=== PATIENT | male | born 1955 | race Caucasian/White ===

== ENCOUNTER 2021-03-03 14:43 | Observation (INO) | payer SELFPAY ==
[2021-03-03] MEDS ORDERED: Ondansetron ODT 4 MG TAB SL PRN (15:00)
[2021-03-03] MEDS ORDERED: Ondansetron PF 4 MG/2 ML Vial IVP PRN (15:00)
[2021-03-03] MEDS ORDERED: Acetaminophen 325 MG TAB PO PRN (15:00)
[2021-03-03 15:35] LABS: ALT (SGPT) 140 U/L (8-55); AST (SGOT) 142 U/L (5-34); Albumin 3.4 g/dL (3.4-4.8); Alkaline Phosphatase 86 U/L (40-110); Anion Gap 12 mmol/L (10-20); BUN (Urea Nitrogen) 15 mg/dL (8.4-25.7); Bilirubin, Total 1.6 mg/dL (0.2-1.2); Calc. Creatinine Clearance 0 mL/min (70-130); Calcium 8.9 mg/dL (7.8-10.44); Carbon Dioxide 17 mmol/L (23-31); Chloride 110 mmol/L (98-107); Globulin 4.2 g/dL (2.4-3.5); Glucose 111 mg/dL (80-115); Potassium 3.9 mmol/L (3.5-5.1); Protein, Total 7.6 g/dL (5.8-8.1); Sodium 135 mmol/L (136-145)
[2021-03-03 15:37] LABS: #Basophils 0.1 thou/uL (0.0-0.2); #Eosinphils 0.2 thou/uL (0.0-0.7); #Lymphocytes 2.4 thou/uL (1.20-3.40); #Monocytes 0.5 thou/uL (0.11-0.59); #Neutrophils 2.6 thou/uL (1.40-6.50); %Basophils 1.6 % (0.0-1.0); %Eosinophils 2.7 % (0.0-10.0); %Lymphocytes 41.5 % (21.0-51.0); %Neutrophils 46.2 % (42.0-75.0); Mean Corpuscular HGB CONC 34.2 g/dL (32.0-36.0); Mean Corpuscular Hemoglobin 35.5 pg (27.0-31.0); Platelet Count 78 thou/uL (130-400); Platelet Morphology Comment Appears Decreased; RBC Distribution Width 12.6 % (11.5-14.5); Red Blood Cell (RBC) Count 4.23 mill/uL (4.70-6.10); White Blood Cell (WBC) Count 5.7 thou/uL (4.8-10.8)
[2021-03-03] MEDS ORDERED: Nitroglycerin 2% Ointment 1 INCH/1 GM Packet ONE (17:52)
[2021-03-03] MEDS ORDERED: Ondansetron PF 4 MG/2 ML Vial ONE (17:52)
[2021-03-03] MEDS ORDERED: Morphine 4 MG/ML VIAL ONE (17:52)
[2021-03-03 18:29] LABS: Troponin I Less than 0.010 ng/mL (< 0.028)
[2021-03-03 19:33] VITALS: BMI 32.8
[2021-03-03 21:42] LABS: Troponin I 0.012 ng/mL (< 0.028)
[2021-03-03] MEDS ORDERED: Morphine 4 MG/ML VIAL SLOW IVP PRN (22:24)
[2021-03-03] MEDS ORDERED: HYDROcodone/Acetaminophen 5/325 mg Tablet PO PRN (22:25)
[2021-03-04 00:36] LABS: SARS-CoV-2 PCR by NAA Not Detected (NotDetected)
[2021-03-04 05:02] LABS: #Basophils 0.1 thou/uL (0.0-0.2); #Eosinphils 0.2 thou/uL (0.0-0.7); #Monocytes 0.5 thou/uL (0.11-0.59); #Neutrophils 2.6 thou/uL (1.40-6.50); %Basophils 1.1 % (0.0-1.0); %Lymphocytes 37.6 % (21.0-51.0); %Monocytes 8.6 % (0.0-10.0); %Neutrophils 49.7 % (42.0-75.0); Mean Corpuscular HGB CONC 33.9 g/dL (32.0-36.0); Mean Platelet Volume 8.9 fL (7.4-10.4); Platelet Count 69 thou/uL (130-400); RBC Distribution Width 12.4 % (11.5-14.5); Red Blood Cell (RBC) Count 4.01 mill/uL (4.70-6.10); White Blood Cell (WBC) Count 5.2 thou/uL (4.8-10.8)
[2021-03-04 05:25] LABS: Anion Gap 12 mmol/L (10-20); BUN (Urea Nitrogen) 16 mg/dL (8.4-25.7); Calc. Creatinine Clearance 123 mL/min (70-130); Calcium 8.5 mg/dL (7.8-10.44); Carbon Dioxide 19 mmol/L (23-31); Chloride 109 mmol/L (98-107); Glucose 87 mg/dL (80-115); Sodium 136 mmol/L (136-145)
[2021-03-04 05:35] LABS: HBCM Index 0.07 S/CO (0-0.79); HBSAg Index 0.22 S/CO (0-0.99); Hep A IgM AB Non-Reactive (NonReactive); Hep A IgM S/CO 0.08 S/CO (0-0.79); Hep B Surf Ag Non-Reactive S/CO (NonReactive); Hepatitis B Core IgM Abs Non-Reactive (NonReactive)
[2021-03-04 06:31] LABS: Hep C IgG Ab Reflex HepC Qnt (NonReactive)
[2021-03-04 06:32] LABS: Hep C Index 11.21 S/CO (0-0.79)
[2021-03-04] MEDS ORDERED: Enoxaparin Sodium 40 MG/0.4 ML SYRINGE SC SCH (09:00)
[2021-03-04] MEDS ORDERED: methylPREDNISolone Sod Succ 40 MG VIAL IVP SCH (09:45)
[2021-03-04] MEDS ORDERED: Lidocaine 5% Patch TD SCH (10:00)
[2021-03-04 12:35] VITALS: BP 148/66; TEMP 98.4
[2021-03-04] MEDS ORDERED: Transdermal Patch Removal TOP SCH (21:00)
[2021-03-05] MEDS ORDERED: Lidocaine 5% Patch TD SCH (09:00)
[2021-03-06 18:37] LABS: HCV log10 5.621 (.); Hep C PCR-Quant 418000 IU/mL (.)
== END 2021-03-04 15:05 | disposition home or self-care (01) ==
LOC: ERS 14:43 → ERHOLD 16:58 → 2NO 19:01
PROVIDERS: ADMIT Internal Medicine; ATTEND Internal Medicine
DX: R07.9 Chest pain, unspecified (principal); I11.0 Hypertensive heart disease with heart failure; I50.9 Heart failure, unspecified; M10.9 Gout, unspecified; J44.9 Chronic obstructive pulmonary disease, unspecified; I25.2 Old myocardial infarction; K74.60 Unspecified cirrhosis of liver; K76.6 Portal hypertension; F17.210 Nicotine dependence, cigarettes, uncomplicated; R74.01 Elevation of levels of liver transaminase levels; D69.6 Thrombocytopenia, unspecified; F12.10 Cannabis abuse, uncomplicated; K80.20 Calculus of gallbladder without cholecystitis without obstruction; Z79.82 Long term (current) use of aspirin; Z79.899 Other long term (current) drug therapy; Z91.041 Radiographic dye allergy status; Z20.822 Contact with and (suspected) exposure to COVID-19
CPT/HCPCS: 36415; 71045; 74176; 76705; 80048; 80053; 80074; 84484; 85025; 87522; 87635; 93005; 96372; 96374; 96375; 96376; G0378; J1650; J2270; J2405; J2920; U0003; U0005

== ENCOUNTER 2021-06-22 15:02 | Inpatient (IN) | payer SELFPAY ==
[2021-06-22] MEDS ORDERED: Acetaminophen 650 MG Suppository ONE (15:08)
[2021-06-22] MEDS ORDERED: Lorazepam 2 MG/ML VIAL ONE (15:25)
[2021-06-22 15:45] LABS: Hemoglobin 13.2 g/dL (14.0-18.0); Mean Corpuscular Hemoglobin 35.8 pg (27.0-31.0); Mean Platelet Volume 11.6 fL (7.4-10.4); Platelet Count 28 thou/uL (130-400); RBC Distribution Width 13.2 % (11.5-14.5); Red Blood Cell (RBC) Count 3.68 mill/uL (4.70-6.10); White Blood Cell (WBC) Count 6.2 thou/uL (4.8-10.8)
[2021-06-22 15:58] LABS: ALT (SGPT) 124 U/L (8-55); AST (SGOT) 264 U/L (5-34); Acetaminophen Less than 6.0 mcg/mL (10.0-30.0); Albumin 2.8 g/dL (3.4-4.8); Alcohol Less than 10 mg/dL (Less than 10); Alkaline Phosphatase 48 U/L (40-110); Anion Gap 13 mmol/L (10-20); BUN (Urea Nitrogen) 33 mg/dL (8.4-25.7); Bilirubin, Total 4.5 mg/dL (0.2-1.2); Calc. Creatinine Clearance 0 mL/min (70-130); Calcium 8.1 mg/dL (7.8-10.44); Carbon Dioxide 18 mmol/L (23-31); Chloride 108 mmol/L (98-107); Globulin 3.3 g/dL (2.4-3.5); Glucose 108 mg/dL (80-115); Magnesium 1.8 mg/dL (1.6-2.6); Potassium 3.6 mmol/L (3.5-5.1); Protein, Total 6.1 g/dL (5.8-8.1); Salicylate Less than 8.0 mg/dL (15.0-30.0); Sodium 135 mmol/L (136-145)
[2021-06-22 16:02] LABS: Band 48 % (5-11); Lymphocytes 9 % (21-51); MDiff Complete? YES; Macrocytosis SLIGHT = 6-15 cells (100X) (0-5/hpf); Monocytes 13 % (0-10); Neutrophil 26 % (42-75); Platelet Morphology Comment Appears Decreased; Polychromasia SLIGHT = 2-3 cells (100X) (0-2/hpf); Reactive Lymphocytes 4 % (0-10); Reflex for Review?? NO
[2021-06-22] MEDS ORDERED: Vancomycin 1 GM/200 ML BAG ONE (16:02)
[2021-06-22] MEDS ORDERED: Cefepime 2 GM VIAL ONE (16:02)
[2021-06-22 16:07] LABS: Bilirubin 1+ (Negative); Blood, Urine 3+ (Negative); Clarity Turbid (Clear); Glucose, Urine (Dipstick) Normal (Negative); Ketone, Urine Negative (Negative); Leukocyte 75 Leu/uL (Negative); Mucous/LPF 2+ LPF (<2+); Nitrite Negative (Negative); Protein, Urine (Dipstick) 70 mg/dL (Neg-Trace); Specific Gravity, Urine 1.022 (1.002-1.036); Squamous Epithelial 0-3 HPF (0-3); Urobilinogen 6 mg/dL (Less than 2); pH, Urine 5.5 (5.0-9.0)
[2021-06-22 16:16] LABS: Bacteria/HPF 1+ HPF (None Seen)
[2021-06-22 16:17] LABS: INR-International Normal Ratio 1.6; PTT 35.8 sec (22.9-36.1); Prothrombin Time 19.2 sec (12.0-14.7)
[2021-06-22 16:21] LABS: Amphetamine Not Detected (NotDetected); Barbiturates Screen Not Detected (NotDetected); Benzodiazepine Screen Not Detected (NotDetected); Cocaine Metabolite Screen Not Detected (NotDetected); Methadone Not Detected (NotDetected); Methamphetamine Not Detected (NotDetected); Opiate Screen Not Detected (NotDetected); Oxycodone Screen Not Detected (NotDetected); Phencyclidine (PCP) Not Detected (NotDetected); THC/Cannabinoid Screen Not Detected (NotDetected); Tricyclic Screen Not Detected (NotDetected)
[2021-06-22 16:28] LABS: CKMB 8.6 ng/mL (0-6.6)
[2021-06-22 17:09] LABS: SARS-CoV-2 NAA Rapid Test Not Detected (NotDetected)
[2021-06-22] MEDS ORDERED: Albumin 25% 25 GM/100 ML BOT IVPB SCH (18:00)
[2021-06-22 19:07] LABS: Lactic Acid 2.3 mmol/L (0.5-2.2)
[2021-06-22 19:14] LABS: Troponin I 0.165 ng/mL (< 0.028)
[2021-06-22 22:42] LABS: Troponin I 0.203 ng/mL (< 0.028)
[2021-06-23] MEDS ORDERED: Ondansetron ODT 4 MG TAB PO PRN (01:17)
[2021-06-23] MEDS ORDERED: Ondansetron PF 4 MG/2 ML Vial IVP PRN (01:17)
[2021-06-23] MEDS ORDERED: Acetaminophen 325 MG TAB PO PRN ×2 (01:17→19:26)
[2021-06-23] MEDS ORDERED: Acetaminophen 650 MG Suppository PR PRN (01:17)
[2021-06-23] MEDS ORDERED: Electrolyte Replacement Protocol 1 EACH FS SCH (02:00)
[2021-06-23] MEDS: Sodium Chloride 0.9% 1,000 ML IV SCH ×3 (02:04→23:55)
[2021-06-23 02:11] LABS: Lactic Acid 2.3 mmol/L (0.5-2.2)
[2021-06-23 03:03] LABS: CKMB 16.7 ng/mL (0-6.6)
[2021-06-23] MEDS ORDERED: Vancomycin 1.5 GRAM/300 ML BAG 1.5 GM in Premix Bag 1 BAG IVPB SCH (03:53)
[2021-06-23] MEDS ORDERED: CEFEPIME HCL IN DEXTROSE 5 % 1 GM/50 ML BAG IVPB SCH (04:00)
[2021-06-23] MEDS ORDERED: Magnesium 2 GM/50 ML 2 GM in Premix Bag 1 BAG IVPB SCH (04:45)
[2021-06-23 04:47] LABS: Lactic Acid 2.6 mmol/L (0.5-2.2)
[2021-06-23 04:47] LABS: Actual Bicarbonate (HCO3a) 16.8 mEq/L (22-28); Base Excess (BEa) -5.4 mEq/L (-2.0 to +3.0); Calcium, Ionized (arterial) 1.07 mmol/L (1.12-1.30); Carboxyhemoglobin (COHb) 0.5 gm% (0.0-3.0); Hemoglobin (Hb) 12.5 g/dL (14.0-18.0); O2 Tension (PaO2), arterial 116.9 mmHg (> 80.0); Potassium - ABG Lab 3.73 mmol/L (3.70-5.30); pH, Arterial 7.46 (7.35-7.45)
[2021-06-23 04:48] LABS: ALV-art Gradient 280.525 mmHg (0-20); CO2 Tension 24.3 mmHg (35.0-45.0); Puncture Site RBA
[2021-06-23 04:49] LABS: Hemoglobin 12.9 g/dL (14.0-18.0); Mean Corpuscular HGB CONC 34.1 g/dL (32.0-36.0); Mean Corpuscular Hemoglobin 34.9 pg (27.0-31.0); Mean Platelet Volume 11.7 fL (7.4-10.4); Platelet Count 28 thou/uL (130-400); RBC Distribution Width 13.5 % (11.5-14.5); White Blood Cell (WBC) Count 4.9 thou/uL (4.8-10.8)
[2021-06-23 04:52] LABS: Anion Gap 15 mmol/L (10-20); BUN (Urea Nitrogen) 38 mg/dL (8.4-25.7); Calc. Creatinine Clearance 80 mL/min (70-130); Carbon Dioxide 16 mmol/L (23-31); Chloride 111 mmol/L (98-107); Glucose 105 mg/dL (80-115); Potassium 3.7 mmol/L (3.5-5.1); Sodium 138 mmol/L (136-145)
[2021-06-23] MEDS: Cefepime 2 GM in Sodium Chloride 0.9% 100 ML IVPB SCH ×2 (04:55→17:42)
[2021-06-23 05:04] LABS: ALT (SGPT) 135 U/L (8-55); AST (SGOT) 326 U/L (5-34); Alkaline Phosphatase 45 U/L (40-110); Bilirubin, Direct 4.8 mg/dL (0.1-0.3); Bilirubin, Total 6.2 mg/dL (0.2-1.2)
[2021-06-23 05:20] LABS: Band 25 % (5-11); Lymphocytes 24 % (21-51); MDiff Complete? YES; Monocytes 9 % (0-10); Neutrophil 39 % (42-75); Platelet Morphology Comment Appears Decreased; RBC Morphology Normal; Reactive Lymphocytes 3 % (0-10)
[2021-06-23] MEDS: Vancomycin HCl 1.5 GM in Sodium Chloride 0.9% 250 ML 300 ML IVPB SCH ×2 (05:23→23:56)
[2021-06-23] MEDS: metroNIDAZOLE 500 MG in Premix Bag 1 BAG IVPB SCH ×2 (06:24→14:03)
[2021-06-23] MEDS: Metoprolol Tartrate 5 MG/5 ML VIAL IVP PRN ×2 (06:47→07:00)
[2021-06-23] MEDS ORDERED: Morphine 2 MG/ML VIAL ONE (12:59)
[2021-06-23] MEDS ORDERED: Morphine 2 MG/ML VIAL SLOW IVP SCH (13:30)
[2021-06-23] MEDS: Diltiazem 125 MG in Sodium Chloride 0.9% 100 ML IVPB SCH (16:05)
[2021-06-23] MEDS ORDERED: Cosyntropin 250 MCG VIAL SLOW IVP SCH (16:30)
[2021-06-23] MEDS ORDERED: Flecainide 50 MG TAB PO SCH (16:45)
[2021-06-23 17:07] LABS: Base Excess (BEa) -6.8 mEq/L (-2.0 to +3.0); Calcium, Ionized (arterial) 1.06 mmol/L (1.12-1.30); Carboxyhemoglobin (COHb) 0.8 gm% (0.0-3.0); Hemoglobin (Hb) 12.9 g/dL (14.0-18.0); O2 Tension (PaO2), arterial 64.8 mmHg (> 80.0); Potassium - ABG Lab 3.91 mmol/L (3.70-5.30); pH, Arterial 7.46 (7.35-7.45)
[2021-06-23 17:10] LABS: CO2 Tension 21.6 mmHg (35.0-45.0); Puncture Site LRA
[2021-06-23] MEDS ORDERED: Digoxin 0.5 MG/2 ML AMP SLOW IVP SCH ×2 (17:15→19:15)
[2021-06-23 18:04] LABS: Lactic Acid 4.1 mmol/L (0.5-2.2)
[2021-06-23] MEDS ORDERED: Sodium Chloride 0.9% 1,000 ML IV SCH (18:30)
[2021-06-23] MEDS ORDERED: Morphine 4 MG/ML VIAL ONE (19:55)
[2021-06-23] MEDS ORDERED: MEROPENEM 1 GM/50 ML 1 GM in Premix Bag 1 BAG IVPB SCH (20:00)
[2021-06-23] MEDS ORDERED: Pantoprazole 40 MG VIAL IVP SCH (20:00)
[2021-06-23] MEDS: Multivitamins, Adult 10 ML, Folic Acid 1 MG, Thiamine HCl 100 MG in Dextrose 5 %-0.45 %... IV SCH (20:34)
[2021-06-23] MEDS ORDERED: Digoxin 0.25 MG TAB PER TUBE SCH (21:15)
[2021-06-23] MEDS: Vancomycin 1.5 GRAM/300 ML BAG 1.5 GM in Premix Bag 1 BAG IVPB SCH (21:55)
[2021-06-23] MEDS: Albumin 25% 25 GM/100 ML BOT IVPB SCH (22:28)
[2021-06-24] MEDS ORDERED: Sodium Chloride 0.9% 1,000 ML IV SCH (01:45)
[2021-06-24 04:09] LABS: INR-International Normal Ratio 1.8; Prothrombin Time 20.6 sec (12.0-14.7)
[2021-06-24 04:13] LABS: Lactic Acid 3.5 mmol/L (0.5-2.2)
[2021-06-24 04:20] LABS: ALT (SGPT) 159 U/L (8-55); AST (SGOT) 460 U/L (5-34); Albumin 3.1 g/dL (3.4-4.8); Alkaline Phosphatase 45 U/L (40-110); Anion Gap 17 mmol/L (10-20); BUN (Urea Nitrogen) 51 mg/dL (8.4-25.7); Bilirubin, Total 9.6 mg/dL (0.2-1.2); Calc. Creatinine Clearance 59 mL/min (70-130); Calcium 7.4 mg/dL (7.8-10.44); Carbon Dioxide 12 mmol/L (23-31); Chloride 114 mmol/L (98-107); Glucose 289 mg/dL (80-115); Magnesium 2.3 mg/dL (1.6-2.6); Potassium 3.6 mmol/L (3.5-5.1); Protein, Total 6.1 g/dL (5.8-8.1); Sodium 139 mmol/L (136-145)
[2021-06-24 04:26] LABS: Phosphorus 1.6 mg/dL (2.3-4.7)
[2021-06-24 04:39] LABS: HBCM Index 0.06 S/CO (0-0.79); HBSAg Index 0.22 S/CO (0-0.99); Hep A IgM AB Non-Reactive (NonReactive); Hep A IgM S/CO 0.09 S/CO (0-0.79); Hep B Surf Ag Non-Reactive S/CO (NonReactive); Hepatitis B Core IgM Abs Non-Reactive (NonReactive)
[2021-06-24 05:01] LABS: Hemoglobin 12.8 g/dL (14.0-18.0); Mean Corpuscular HGB CONC 34.1 g/dL (32.0-36.0); Mean Corpuscular Hemoglobin 35.2 pg (27.0-31.0); Mean Platelet Volume 12.9 fL (7.4-10.4); Platelet Count 31 thou/uL (130-400); RBC Distribution Width 13.6 % (11.5-14.5); Red Blood Cell (RBC) Count 3.64 mill/uL (4.70-6.10); White Blood Cell (WBC) Count 7.6 thou/uL (4.8-10.8)
[2021-06-24] MEDS: Vancomycin 1.5 GRAM/300 ML BAG 1.5 GM in Premix Bag 1 BAG IVPB SCH (05:15)
[2021-06-24 05:27] LABS: Hep C IgG Ab Reflex HepC Qnt (NonReactive); Hep C Index 12.04 S/CO (0-0.79)
[2021-06-24] MEDS ORDERED: Potassium Phosphate 15 MMOL in Sodium Chloride 0.9% 250 ML 250 ML IVPB SCH (05:45)
[2021-06-24 06:01] LABS: Band 52 % (5-11); Lymphocytes 17 % (21-51); MDiff Complete? YES; Metamyelocyte 1 % (0-0); Monocytes 8 % (0-10); Neutrophil 22 % (42-75); Platelet Morphology Comment Appears Decreased; Vacuoles SLIGHT
[2021-06-24 07:22] LABS: Clarity Turbid (Clear); Glucose, Urine (Dipstick) Normal (Negative); Ketone, Urine Trace mg/dL (Negative); Leukocyte Negative Leu/uL (Negative); Nitrite Negative (Negative); Protein, Urine (Dipstick) 100 mg/dL (Neg-Trace); Specific Gravity, Urine 1.029 (1.002-1.036)
[2021-06-24 07:23] LABS: Bilirubin 2+ (Negative); Blood, Urine 3+ (Negative); Squamous Epithelial 0-3 HPF (0-3)
[2021-06-24 07:27] LABS: Bacteria/HPF None Seen HPF (None Seen)
[2021-06-24] MEDS: Sodium Chloride 0.9% 1,000 ML IV SCH (10:02)
[2021-06-24] MEDS: MEROPENEM 1 GM/50 ML 1 GM in Premix Bag 1 BAG IVPB SCH ×3 (10:04→20:34)
[2021-06-24] MEDS: Albumin 25% 25 GM/100 ML BOT IVPB SCH ×3 (10:05→18:20)
[2021-06-24] MEDS: Pantoprazole 40 MG VIAL IVP SCH (10:05)
[2021-06-24] MEDS: Digoxin 0.125 MG TAB PO SCH (10:05)
[2021-06-24] MEDS: Flecainide 50 MG TAB PO SCH ×2 (10:05→20:35)
[2021-06-24] MEDS ORDERED: Sodium Bicarbonate 150 MEQ in Dextrose 5% in Water 1,000 ML IV SCH (10:15)
[2021-06-24] MEDS: Midodrine HCl 5 MG TAB PO SCH ×3 (14:25→23:19)
[2021-06-24 14:56] LABS: Protein, Urine Random Quant 64 mg/dL (1-14); Sodium, Urine Less than 20 mmol/L (Not Available); Urea Nitrogen, Random Urine 442 mg/dl
[2021-06-24 15:37] LABS: Lactic Acid 2.2 mmol/L (0.5-2.2)
[2021-06-24 15:41] LABS: ALT (SGPT) 131 U/L (8-55); AST (SGOT) 386 U/L (5-34); Albumin 2.9 g/dL (3.4-4.8); Alkaline Phosphatase 39 U/L (40-110); Anion Gap 13 mmol/L (10-20); BUN (Urea Nitrogen) 58 mg/dL (8.4-25.7); Bilirubin, Total 9.4 mg/dL (0.2-1.2); CK (CPK) 2899 U/L (30-200); Calc. Creatinine Clearance 64 mL/min (70-130); Calcium 7.1 mg/dL (7.8-10.44); Carbon Dioxide 13 mmol/L (23-31); Chloride 121 mmol/L (98-107); Globulin 2.6 g/dL (2.4-3.5); Glucose 97 mg/dL (80-115); Potassium 3.5 mmol/L (3.5-5.1); Protein, Total 5.5 g/dL (5.8-8.1); Sodium 143 mmol/L (136-145)
[2021-06-24] MEDS: Multivitamins, Adult 10 ML, Folic Acid 1 MG, Thiamine HCl 100 MG in Dextrose 5 %-0.45 %... IV SCH (17:04)
[2021-06-24] MEDS: Sodium Bicarbonate 150 MEQ in Dextrose 5% in Water 1,000 ML IV SCH (17:05)
[2021-06-24 17:41] LABS: Vancomycin, Trough 36.7 ug/mL
[2021-06-24 20:19] LABS: ALT (SGPT) 134 U/L (8-55); AST (SGOT) 419 U/L (5-34); Albumin 3.2 g/dL (3.4-4.8); Alkaline Phosphatase 44 U/L (40-110); Anion Gap 16 mmol/L (10-20); BUN (Urea Nitrogen) 64 mg/dL (8.4-25.7); Bilirubin, Total 11.3 mg/dL (0.2-1.2); CK (CPK) 3003 U/L (30-200); Calc. Creatinine Clearance 55 mL/min (70-130); Calcium 7.5 mg/dL (7.8-10.44); Carbon Dioxide 13 mmol/L (23-31); Chloride 120 mmol/L (98-107); Globulin 2.4 g/dL (2.4-3.5); Glucose 144 mg/dL (80-115); Potassium 4.2 mmol/L (3.5-5.1); Protein, Total 5.6 g/dL (5.8-8.1); Sodium 145 mmol/L (136-145)
[2021-06-24 20:20] LABS: Phosphorus 1.3 mg/dL (2.3-4.7)
[2021-06-24] MEDS ORDERED: Electrolyte Replacement Protocol FS PRN (21:45)
[2021-06-24] MEDS: PHOS-NAK 1 PKT PACK PO SCH (21:47)
[2021-06-24] MEDS: Vancomycin HCl 25 MG/ML Oral PO SCH (21:48)
[2021-06-25] MEDS: Albumin 25% 25 GM/100 ML BOT IVPB SCH ×3 (00:15→12:42)
[2021-06-25] MEDS ORDERED: Potassium Bicarbonate/Cit Ac 20 MEQ TAB PER TUBE SCH (00:30)
[2021-06-25] MEDS: PHOS-NAK 1 PKT PACK PO SCH ×3 (00:47→12:41)
[2021-06-25] MEDS: Vancomycin HCl 25 MG/ML Oral PO SCH ×4 (02:04→20:44)
[2021-06-25 04:17] LABS: ALT (SGPT) 140 U/L (8-55); AST (SGOT) 417 U/L (5-34); Alkaline Phosphatase 48 U/L (40-110); Anion Gap 15 mmol/L (10-20); BUN (Urea Nitrogen) 71 mg/dL (8.4-25.7); Bilirubin, Total 12.1 mg/dL (0.2-1.2); CK (CPK) 2574 U/L (30-200); Calc. Creatinine Clearance 52 mL/min (70-130); Calcium 7.5 mg/dL (7.8-10.44); Carbon Dioxide 17 mmol/L (23-31); Chloride 116 mmol/L (98-107); Globulin 2.5 g/dL (2.4-3.5); Glucose 178 mg/dL (80-115); Potassium 3.5 mmol/L (3.5-5.1); Protein, Total 5.5 g/dL (5.8-8.1); Sodium 144 mmol/L (136-145)
[2021-06-25 04:29] LABS: Band 34 % (5-11); Hemoglobin 11.5 g/dL (14.0-18.0); Lymphocytes 12 % (21-51); MDiff Complete? YES; Mean Corpuscular HGB CONC 34.4 g/dL (32.0-36.0); Mean Corpuscular Hemoglobin 35.2 pg (27.0-31.0); Monocytes 5 % (0-10); Myelocyte 1 % (0-0); Neutrophil 43 % (42-75); Nucleated RBC 3 % (0); Platelet Count 35 thou/uL (130-400); Platelet Morphology Comment Appears Decreased; Promyelocytes 1 % (0-0); RBC Distribution Width 13.7 % (11.5-14.5); RBC Morphology Normal; Reactive Lymphocytes 4 % (0-10); Red Blood Cell (RBC) Count 3.28 mill/uL (4.70-6.10); White Blood Cell (WBC) Count 9.3 thou/uL (4.8-10.8)
[2021-06-25] MEDS: Sodium Bicarbonate 150 MEQ in Dextrose 5% in Water 1,000 ML IV SCH (05:34)
[2021-06-25] MEDS ORDERED: Potassium Chloride 20 MEQ TAB PO SCH (06:30)
[2021-06-25 06:57] LABS: Lactic Acid 2.9 mmol/L (0.5-2.2)
[2021-06-25 07:35] LABS: Magnesium 2.5 mg/dL (1.6-2.6)
[2021-06-25 07:40] LABS: Phosphorus 1.2 mg/dL (2.3-4.7)
[2021-06-25] MEDS ORDERED: Sodium Phosphate 15 MMOL in Sodium Chloride 0.9% 250 ML 250 ML IVPB SCH (09:45)
[2021-06-25] MEDS: MEROPENEM 1 GM/50 ML 1 GM in Premix Bag 1 BAG IVPB SCH ×2 (09:55→17:07)
[2021-06-25] MEDS: Midodrine HCl 5 MG TAB PO SCH ×3 (09:56→20:44)
[2021-06-25] MEDS: Digoxin 0.125 MG TAB PO SCH (09:56)
[2021-06-25] MEDS: Flecainide 50 MG TAB PO SCH ×2 (09:56→20:44)
[2021-06-25] MEDS: Pantoprazole 40 MG VIAL IVP SCH (09:57)
[2021-06-25 10:25] LABS: Complement-C4 18.1 mg/dL (15-53)
[2021-06-25 11:12] LABS: Band 54 % (5-11); Hemoglobin 11.2 g/dL (14.0-18.0); Lymphocytes 17 % (21-51); MDiff Complete? YES; Mean Corpuscular HGB CONC 34.7 g/dL (32.0-36.0); Mean Corpuscular Hemoglobin 35.4 pg (27.0-31.0); Mean Platelet Volume 12.1 fL (7.4-10.4); Metamyelocyte 4 % (0-0); Monocytes 1 % (0-10); Myelocyte 3 % (0-0); Neutrophil 20 % (42-75); Nucleated RBC 2 % (0); Platelet Count 34 thou/uL (130-400); RBC Distribution Width 13.7 % (11.5-14.5); Red Blood Cell (RBC) Count 3.18 mill/uL (4.70-6.10); Reflex for Review?? YES; White Blood Cell (WBC) Count 10.5 thou/uL (4.8-10.8)
[2021-06-25] MEDS ORDERED: Sodium Bicarbonate 150 MEQ in Dextrose 5% in Water 1,000 ML IV SCH (11:22)
[2021-06-25] MEDS ORDERED: Furosemide 40 MG/4 ML VIAL SLOW IVP SCH (16:30)
[2021-06-25] MEDS: Multivitamins, Adult 10 ML, Folic Acid 1 MG, Thiamine HCl 100 MG in Dextrose 5 %-0.45 %... IV SCH (17:26)
[2021-06-25] MEDS: Diltiazem 125 MG in Sodium Chloride 0.9% 100 ML IVPB SCH (17:31)
[2021-06-25] MEDS ORDERED: Potassium Phosphate 15 MMOL in Sodium Chloride 0.9% 250 ML 250 ML IVPB SCH (18:00)
[2021-06-25 18:19] LABS: ALT (SGPT) 122 U/L (8-55); AST (SGOT) 355 U/L (5-34); Albumin 3.3 g/dL (3.4-4.8); Alkaline Phosphatase 43 U/L (40-110); Anion Gap 16 mmol/L (10-20); BUN (Urea Nitrogen) 77 mg/dL (8.4-25.7); Bilirubin, Total 13.5 mg/dL (0.2-1.2); CK (CPK) 1832 U/L (30-200); Calc. Creatinine Clearance 57 mL/min (70-130); Calcium 7.2 mg/dL (7.8-10.44); Carbon Dioxide 18 mmol/L (23-31); Chloride 117 mmol/L (98-107); Globulin 2.1 g/dL (2.4-3.5); Glucose 104 mg/dL (80-115); Potassium 3.2 mmol/L (3.5-5.1); Protein, Total 5.4 g/dL (5.8-8.1); Sodium 148 mmol/L (136-145)
[2021-06-26] MEDS: Vancomycin HCl 25 MG/ML Oral PO SCH ×4 (02:07→19:53)
[2021-06-26 03:48] LABS: INR-International Normal Ratio 1.8
[2021-06-26 03:57] LABS: ALT (SGPT) 132 U/L (8-55); AST (SGOT) 361 U/L (5-34); Albumin 3.3 g/dL (3.4-4.8); Alkaline Phosphatase 46 U/L (40-110); Anion Gap 15 mmol/L (10-20); BUN (Urea Nitrogen) 85 mg/dL (8.4-25.7); CK (CPK) 1505 U/L (30-200); Calc. Creatinine Clearance 50 mL/min (70-130); Calcium 7.2 mg/dL (7.8-10.44); Carbon Dioxide 21 mmol/L (23-31); Chloride 114 mmol/L (98-107); Globulin 2.3 g/dL (2.4-3.5); Glucose 130 mg/dL (80-115); Potassium 3.9 mmol/L (3.5-5.1); Protein, Total 5.6 g/dL (5.8-8.1); Sodium 146 mmol/L (136-145)
[2021-06-26 04:37] LABS: Actual Bicarbonate (HCO3a) 22.1 mEq/L (22-28); Base Excess (BEa) -4.6 mEq/L (-2.0 to +3.0); CO2 Tension 47.6 mmHg (35.0-45.0); Calcium, Ionized (arterial) 1.02 mmol/L (1.12-1.30); Hemoglobin (Hb) 11.3 g/dL (14.0-18.0); pH, Arterial 7.28 (7.35-7.45)
[2021-06-26 04:48] LABS: O2 Tension (PaO2), arterial 55.4 mmHg (> 80.0)
[2021-06-26 04:49] LABS: Puncture Site RRA
[2021-06-26 05:49] LABS: Band 10 % (5-11); Eosinophils 1 % (0-10); Hemoglobin 11.3 g/dL (14.0-18.0); Lymphocytes 8 % (21-51); MDiff Complete? YES; Mean Corpuscular HGB CONC 33.5 g/dL (32.0-36.0); Mean Corpuscular Hemoglobin 34.8 pg (27.0-31.0); Mean Platelet Volume 12.6 fL (7.4-10.4); Metamyelocyte 1 % (0-0); Monocytes 6 % (0-10); Myelocyte 3 % (0-0); Neutrophil 68 % (42-75); Platelet Count 33 thou/uL (130-400); Platelet Morphology Comment Appears Decreased; Reactive Lymphocytes 3 % (0-10); Red Blood Cell (RBC) Count 3.25 mill/uL (4.70-6.10); White Blood Cell (WBC) Count 13.1 thou/uL (4.8-10.8)
[2021-06-26 06:09] LABS: Lactic Acid 1.9 mmol/L (0.5-2.2)
[2021-06-26] MEDS: Pantoprazole 40 MG VIAL IVP SCH (09:15)
[2021-06-26] MEDS: Flecainide 50 MG TAB PO SCH ×2 (09:16→20:38)
[2021-06-26] MEDS: Midodrine HCl 5 MG TAB PO SCH ×3 (09:16→20:38)
[2021-06-26] MEDS: Digoxin 0.125 MG TAB PO SCH (09:16)
[2021-06-26] MEDS ORDERED: Metolazone 5 MG TAB PO SCH (11:00)
[2021-06-26] MEDS ORDERED: Furosemide 40 MG/4 ML VIAL SLOW IVP SCH (11:00)
[2021-06-26] MEDS ORDERED: Azithromycin 250 MG TAB PER TUBE SCH (11:45)
[2021-06-26] MEDS: Multivitamins, Adult 10 ML, Folic Acid 1 MG, Thiamine HCl 100 MG in Dextrose 5 %-0.45 %... IV SCH (19:39)
[2021-06-26] MEDS: Diltiazem 125 MG in Sodium Chloride 0.9% 100 ML IVPB SCH (21:06)
[2021-06-27] MEDS: Vancomycin HCl 25 MG/ML Oral PO SCH ×4 (08:02→19:44)
[2021-06-27] MEDS: Azithromycin 250 MG TAB PER TUBE SCH (09:44)
[2021-06-27] MEDS: Digoxin 0.125 MG TAB PO SCH (09:44)
[2021-06-27] MEDS: Flecainide 50 MG TAB PO SCH ×2 (09:44→19:53)
[2021-06-27] MEDS: Pantoprazole 40 MG VIAL IVP SCH (09:45)
[2021-06-27] MEDS: Midodrine HCl 5 MG TAB PO SCH ×3 (09:45→19:52)
[2021-06-27 09:52] LABS: Anion Gap 12 mmol/L (10-20); BUN (Urea Nitrogen) 113 mg/dL (8.4-25.7); CK (CPK) 580 U/L (30-200); Calc. Creatinine Clearance 53 mL/min (70-130); Calcium 7.6 mg/dL (7.8-10.44); Carbon Dioxide 21 mmol/L (23-31); Chloride 118 mmol/L (98-107); Potassium 3.3 mmol/L (3.5-5.1); Sodium 148 mmol/L (136-145)
[2021-06-27 11:02] LABS: Hemoglobin 11.3 g/dL (14.0-18.0); Manual Diff?? YES; Mean Corpuscular HGB CONC 34.1 g/dL (32.0-36.0); Mean Platelet Volume 12.6 fL (7.4-10.4); Platelet Count 46 thou/uL (130-400); RBC Distribution Width 14.3 % (11.5-14.5); Red Blood Cell (RBC) Count 3.22 mill/uL (4.70-6.10); White Blood Cell (WBC) Count 16.4 thou/uL (4.8-10.8)
[2021-06-27 11:03] LABS: Band 4 % (5-11); Lymphocytes 26 % (21-51); MDiff Complete? YES; Monocytes 7 % (0-10); Neutrophil 63 % (42-75); Platelet Morphology Comment Appears Decreased; RBC Morphology Normal
[2021-06-27 11:58] LABS: Actual Bicarbonate (HCO3v) 21 mEq/L (22-28); Base Excess -4.9 mEq/L (-2.0 to +3.0); Calcium, Ionized (venous) 1.04 mmol/L (1.16-1.32); Chloride (VBG) 119 mmol/L (98-106); Hemoglobin (Hb) 12.4 g/dL (12.6-17.4); Potassium (VBG) 3.57 mmol/L (3.70-5.30); Sodium 150.1 mmol/L (133-146); pH (venous) 7.31 (7.32-7.43)
[2021-06-27 12:29] LABS: Magnesium 3.4 mg/dL (1.6-2.6)
[2021-06-27] MEDS ORDERED: Furosemide 40 MG/4 ML VIAL SLOW IVP SCH (13:30)
[2021-06-27] MEDS: Potassium Chloride 20 MEQ TAB PO SCH ×2 (14:17→19:44)
[2021-06-27] MEDS: Multivitamins, Adult 10 ML, Folic Acid 1 MG, Thiamine HCl 100 MG in Dextrose 5 %-0.45 %... IV SCH (17:45)
[2021-06-27 20:45] LABS: Anion Gap 14 mmol/L (10-20); Calc. Creatinine Clearance 50 mL/min (70-130); Carbon Dioxide 21 mmol/L (23-31); Chloride 121 mmol/L (98-107); Potassium 3.5 mmol/L (3.5-5.1); Sodium 152 mmol/L (136-145)
[2021-06-27 20:46] LABS: Calcium 7.8 mg/dL (7.8-10.44); Glucose 178 mg/dL (80-115)
[2021-06-27 20:57] LABS: BUN (Urea Nitrogen) 112 mg/dL (8.4-25.7)
[2021-06-27] MEDS ORDERED: Potassium Bicarbonate/Cit Ac 20 MEQ TAB PER TUBE SCH (22:45)
[2021-06-28] MEDS: Vancomycin HCl 25 MG/ML Oral PO SCH ×4 (01:30→19:43)
[2021-06-28 05:59] LABS: ALT (SGPT) 104 U/L (8-55); AST (SGOT) 195 U/L (5-34); Albumin 2.9 g/dL (3.4-4.8); Alkaline Phosphatase 73 U/L (40-110); Anion Gap 12 mmol/L (10-20); Bilirubin, Total 22.5 mg/dL (0.2-1.2); Calc. Creatinine Clearance 53 mL/min (70-130); Calcium 7.9 mg/dL (7.8-10.44); Carbon Dioxide 24 mmol/L (23-31); Chloride 121 mmol/L (98-107); Globulin 2.7 g/dL (2.4-3.5); Glucose 135 mg/dL (80-115); Protein, Total 5.6 g/dL (5.8-8.1); Sodium 153 mmol/L (136-145)
[2021-06-28 06:02] LABS: Band 1 % (5-11); Hemoglobin 11.6 g/dL (14.0-18.0); Lymphocytes 9 % (21-51); MDiff Complete? YES; Macrocytosis MODERATE=16-30 cells (100X) (0-5/hpf); Mean Corpuscular HGB CONC 32.4 g/dL (32.0-36.0); Mean Platelet Volume 12.2 fL (7.4-10.4); Monocytes 6 % (0-10); Myelocyte 1 % (0-0); Neutrophil 83 % (42-75); Nucleated RBC 1 % (0); Platelet Count 52 thou/uL (130-400); Platelet Morphology Comment Appears Decreased; RBC Distribution Width 14.6 % (11.5-14.5); White Blood Cell (WBC) Count 19.5 thou/uL (4.8-10.8)
[2021-06-28 06:25] LABS: BUN (Urea Nitrogen) 108 mg/dL (8.4-25.7)
[2021-06-28] MEDS ORDERED: Spironolactone 100 MG TAB PO SCH ×2 (08:00→08:45)
[2021-06-28] MEDS ORDERED: Metolazone 5 MG TAB PO SCH (08:45)
[2021-06-28] MEDS: Pantoprazole 40 MG VIAL IVP SCH (08:50)
[2021-06-28] MEDS: Digoxin 0.125 MG TAB PO SCH (08:50)
[2021-06-28] MEDS: Midodrine HCl 5 MG TAB PO SCH ×3 (08:50→20:03)
[2021-06-28] MEDS: Flecainide 50 MG TAB PO SCH (08:50)
[2021-06-28] MEDS: Azithromycin 250 MG TAB PER TUBE SCH (08:50)
[2021-06-28] MEDS ORDERED: Lorazepam 2 MG/ML VIAL SLOW IVP PRN (14:51)
[2021-06-28 15:30] LABS: Albumin 2.8 g/dL (3.4-4.8); Anion Gap 14 mmol/L (10-20); Calc. Creatinine Clearance 51 mL/min (70-130); Calcium 8.4 mg/dL (7.8-10.44); Carbon Dioxide 22 mmol/L (23-31); Chloride 124 mmol/L (98-107); Glucose 152 mg/dL (80-115); Phosphorus 4.5 mg/dL (2.3-4.7); Potassium 4.3 mmol/L (3.5-5.1); Sodium 156 mmol/L (136-145)
[2021-06-28 15:41] LABS: BUN (Urea Nitrogen) 118 mg/dL (8.4-25.7)
[2021-06-28] MEDS ORDERED: Rocuronium Bromide 50 MG/5 ML VIAL ONE (15:41)
[2021-06-28] MEDS ORDERED: PROPOFOL 20 ML ONE (15:41)
[2021-06-28] MEDS ORDERED: Rocuronium Bromide 50 MG/5 ML VIAL IVP SCH (15:45)
[2021-06-28] MEDS ORDERED: PROPOFOL 200 MG/20 ML VIAL IV SCH (15:45)
[2021-06-28] MEDS ORDERED: Propofol 1,000 MG/100 ML VIAL IV ONE (16:17)
[2021-06-28] MEDS ORDERED: DISCONTINUE PREVIOUS NARCOTIC PAIN MEDICATIONS AND BENZODIAZEPINES FS SCH (16:45)
[2021-06-28] MEDS ORDERED: Propofol BOLUS 1,000 MG/100 ML VIAL IV PRN (16:45)
[2021-06-28] MEDS ORDERED: Fentanyl BOLUS 250 ML IVPB PRN (16:45)
[2021-06-28] MEDS ORDERED: Morphine 2 MG/ML VIAL SLOW IVP PRN (16:45)
[2021-06-28] MEDS: Propofol 1,000 MG/100 ML VIAL IV PRN ×2 (17:08→22:59)
[2021-06-28] MEDS: Multivitamins, Adult 10 ML, Folic Acid 1 MG, Thiamine HCl 100 MG in Dextrose 5 %-0.45 %... IV SCH (17:14)
[2021-06-28] MEDS: Oxacillin 2 GM in Sodium Chloride 0.9% 100 ML IVPB SCH ×2 (17:14→20:03)
[2021-06-28] MEDS ORDERED: Sodium Chloride 0.9% 1,000 ML IV SCH (18:00)
[2021-06-28] MEDS: Dextrose 5% in Water 1,000 ML IV SCH (18:38)
[2021-06-28] MEDS ORDERED: Albumin 25% 25 GM/100 ML BOT IVPB SCH (18:45)
[2021-06-29] MEDS: Oxacillin 2 GM in Sodium Chloride 0.9% 100 ML IVPB SCH ×6 (01:06→21:02)
[2021-06-29] MEDS: Vancomycin HCl 25 MG/ML Oral PO SCH ×4 (01:06→19:11)
[2021-06-29] MEDS: Propofol 1,000 MG/100 ML VIAL IV PRN ×3 (03:52→20:10)
[2021-06-29] MEDS: Dextrose 5% in Water 1,000 ML IV SCH ×2 (04:41→15:32)
[2021-06-29 05:23] LABS: Magnesium 3.4 mg/dL (1.6-2.6); Phosphorus 3.6 mg/dL (2.3-4.7)
[2021-06-29 05:25] LABS: ALT (SGPT) 74 U/L (8-55); AST (SGOT) 135 U/L (5-34); Albumin 2.5 g/dL (3.4-4.8); Alkaline Phosphatase 70 U/L (40-110); Anion Gap 10 mmol/L (10-20); Bilirubin, Total 21.2 mg/dL (0.2-1.2); Calc. Creatinine Clearance 43 mL/min (70-130); Calcium 7.7 mg/dL (7.8-10.44); Carbon Dioxide 24 mmol/L (23-31); Chloride 123 mmol/L (98-107); Globulin 2.4 g/dL (2.4-3.5); Glucose 128 mg/dL (80-115); Potassium 3.6 mmol/L (3.5-5.1); Protein, Total 4.9 g/dL (5.8-8.1); Sodium 153 mmol/L (136-145)
[2021-06-29 05:28] LABS: Band 5 % (5-11); Hemoglobin 10.3 g/dL (14.0-18.0); Hypochromia SLIGHT = 6-15 cells (100X) (0-5/hpf); Lymphocytes 18 % (21-51); MDiff Complete? YES; Macrocytosis SLIGHT = 6-15 cells (100X) (0-5/hpf); Mean Corpuscular HGB CONC 36.4 g/dL (32.0-36.0); Mean Corpuscular Hemoglobin 38.4 pg (27.0-31.0); Monocytes 9 % (0-10); Neutrophil 68 % (42-75); Platelet Count 36 thou/uL (130-400); Platelet Morphology Comment Appears Decreased; RBC Distribution Width 15.1 % (11.5-14.5); Red Blood Cell (RBC) Count 2.69 mill/uL (4.70-6.10); White Blood Cell (WBC) Count 11.5 thou/uL (4.8-10.8)
[2021-06-29 05:37] LABS: BUN (Urea Nitrogen) 125 mg/dL (8.4-25.7)
[2021-06-29 07:54] LABS: Actual Bicarbonate (HCO3a) 20.9 mEq/L (22-28); Base Excess (BEa) -2.5 mEq/L (-2.0 to +3.0); CO2 Tension 31.1 mmHg (35.0-45.0); Calcium, Ionized (arterial) 1.12 mmol/L (1.12-1.30); Carboxyhemoglobin (COHb) 1.6 gm% (0.0-3.0); Hemoglobin (Hb) 10.1 g/dL (14.0-18.0); O2 Tension (PaO2), arterial 71.7 mmHg (> 80.0); Potassium - ABG Lab 3.44 mmol/L (3.70-5.30); pH, Arterial 7.45 (7.35-7.45)
[2021-06-29 07:56] LABS: ALV-art Gradient 245.925 mmHg (0-20); Puncture Site RRA
[2021-06-29] MEDS: Albumin 25% 25 GM/100 ML BOT IVPB SCH ×3 (07:57→21:02)
[2021-06-29] MEDS ORDERED: Spironolactone 100 MG TAB PO SCH (08:00)
[2021-06-29] MEDS: Pantoprazole 40 MG VIAL IVP SCH (09:15)
[2021-06-29] MEDS: Digoxin 0.125 MG TAB PO SCH (09:16)
[2021-06-29] MEDS: Midodrine HCl 5 MG TAB PO SCH ×3 (09:16→21:02)
[2021-06-29] MEDS: Azithromycin 250 MG TAB PER TUBE SCH (09:16)
[2021-06-29] MEDS ORDERED: Fentanyl CADD 100 ML ONE (10:19)
[2021-06-29] MEDS: Fentanyl CADD 100 ML IV SCH (10:27)
[2021-06-29 11:24] LABS: Glucose 157 mg/dL (80-115)
[2021-06-29 14:18] LABS: Anion Gap 12 mmol/L (10-20); Calc. Creatinine Clearance 42 mL/min (70-130); Calcium 7.6 mg/dL (7.8-10.44); Carbon Dioxide 23 mmol/L (23-31); Chloride 119 mmol/L (98-107); Glucose 118 mg/dL (80-115); Potassium 3.5 mmol/L (3.5-5.1); Sodium 150 mmol/L (136-145)
[2021-06-29 14:30] LABS: BUN (Urea Nitrogen) 127 mg/dL (8.4-25.7)
[2021-06-29] MEDS ORDERED: Octreotide Acetate 100 MCG/ML VIAL SC SCH (15:15)
[2021-06-29] MEDS: Multivitamins, Adult 10 ML, Folic Acid 1 MG, Thiamine HCl 100 MG in Dextrose 5 %-0.45 %... IV SCH (17:03)
[2021-06-29 19:00] LABS: BUN (Urea Nitrogen) 131 mg/dL (8.4-25.7)
[2021-06-29 19:19] LABS: Albumin 2.9 g/dL (3.4-4.8); Anion Gap 15 mmol/L (10-20); Calc. Creatinine Clearance 40 mL/min (70-130); Calcium 7.9 mg/dL (7.8-10.44); Carbon Dioxide 19 mmol/L (23-31); Chloride 118 mmol/L (98-107); Glucose 133 mg/dL (80-115); Phosphorus 5.5 mg/dL (2.3-4.7); Potassium 3.8 mmol/L (3.5-5.1); Sodium 148 mmol/L (136-145)
[2021-06-29] MEDS: Octreotide Acetate 100 MCG/ML VIAL SC SCH (21:02)
[2021-06-30] MEDS: Vancomycin HCl 25 MG/ML Oral PO SCH ×4 (01:11→21:26)
[2021-06-30] MEDS: Oxacillin 2 GM in Sodium Chloride 0.9% 100 ML IVPB SCH ×6 (01:11→21:26)
[2021-06-30 04:22] LABS: ALT (SGPT) 60 U/L (8-55); AST (SGOT) 113 U/L (5-34); Albumin 3.1 g/dL (3.4-4.8); Alkaline Phosphatase 75 U/L (40-110); Anion Gap 13 mmol/L (10-20); BUN (Urea Nitrogen) 145 mg/dL (8.4-25.7); Bilirubin, Total 23.8 mg/dL (0.2-1.2); Calc. Creatinine Clearance 34 mL/min (70-130); Calcium 7.7 mg/dL (7.8-10.44); Carbon Dioxide 22 mmol/L (23-31); Chloride 115 mmol/L (98-107); Digoxin 1.57 ng/mL (0.8-2.0); Globulin 2.5 g/dL (2.4-3.5); Glucose 126 mg/dL (80-115); Potassium 4.1 mmol/L (3.5-5.1); Protein, Total 5.6 g/dL (5.8-8.1); Sodium 146 mmol/L (136-145)
[2021-06-30 04:44] LABS: Lymphocytes 15 % (21-51); MDiff Complete? YES; Macrocytosis MODERATE=16-30 cells (100X) (0-5/hpf); Mean Corpuscular HGB CONC 32.5 g/dL (32.0-36.0); Mean Corpuscular Hemoglobin 34.7 pg (27.0-31.0); Mean Platelet Volume 13.1 fL (7.4-10.4); Monocytes 6 % (0-10); Myelocyte 1 % (0-0); Neutrophil 78 % (42-75); Nucleated RBC 3 % (0); Platelet Count 39 thou/uL (130-400); Platelet Morphology Comment Appears Decreased; Polychromasia SLIGHT = 2-3 cells (100X) (0-2/hpf); RBC Distribution Width 16.2 % (11.5-14.5); Red Blood Cell (RBC) Count 2.87 mill/uL (4.70-6.10); White Blood Cell (WBC) Count 12.5 thou/uL (4.8-10.8)
[2021-06-30] MEDS: Albumin 25% 25 GM/100 ML BOT IVPB SCH (05:12)
[2021-06-30] MEDS: Octreotide Acetate 100 MCG/ML VIAL SC SCH ×3 (05:12→21:31)
[2021-06-30] MEDS: Propofol 1,000 MG/100 ML VIAL IV PRN (05:21)
[2021-06-30] MEDS ORDERED: Fentanyl CADD 100 ML ONE (06:29)
[2021-06-30] MEDS: Fentanyl CADD 100 ML IV SCH (06:35)
[2021-06-30] MEDS ORDERED: Potassium Chloride 40 MEQ in Sodium Chloride 0.9% 250 ML 250 ML IVPB SCH (07:00)
[2021-06-30] MEDS: Pantoprazole 40 MG VIAL IVP SCH (08:13)
[2021-06-30] MEDS: Midodrine HCl 5 MG TAB PO SCH ×3 (08:16→21:26)
[2021-06-30] MEDS: Dextrose 5% in Water 1,000 ML IV SCH ×3 (08:17→21:28)
[2021-06-30 08:20] LABS: Actual Bicarbonate (HCO3a) 20.3 mEq/L (22-28); Base Excess (BEa) -6.1 mEq/L (-2.0 to +3.0); CO2 Tension 43.7 mmHg (35.0-45.0); Calcium, Ionized (arterial) 1.05 mmol/L (1.12-1.30); Carboxyhemoglobin (COHb) 1.6 gm% (0.0-3.0); Hemoglobin (Hb) 10.1 g/dL (14.0-18.0); O2 Tension (PaO2), arterial 65.4 mmHg (> 80.0); Potassium - ABG Lab 3.97 mmol/L (3.70-5.30); pH, Arterial 7.28 (7.35-7.45)
[2021-06-30 08:22] LABS: ALV-art Gradient 272.125 mmHg (0-20); Puncture Site LRA
[2021-06-30] MEDS ORDERED: Heparin 10,000 UNITS/ 10 ML VIAL ONE ×2 (08:59→10:31)
[2021-06-30] MEDS: Digoxin 0.125 MG TAB PO SCH (09:40)
[2021-06-30 11:21] LABS: Nucleated RBC 1 % (0)
[2021-06-30 15:06] LABS: HBSAg Index 0.28 S/CO (0-0.99); Hep B Surf Ag Non-Reactive S/CO (NonReactive)
[2021-06-30 15:16] LABS: HBSAB Concentration 88.84 mIU/mL; Hep B Surf AB Reactive (NonReactive); Hep C IgG Ab Reflex HepC Qnt (NonReactive); Hep C Index 10.86 S/CO (0-0.79)
[2021-06-30 17:31] LABS: Hep B Core Total Ab Reactive (NonReactive); Hep B Core Total Index 9.38 S/CO (0-0.79)
[2021-06-30] MEDS: Multivitamins, Adult 10 ML, Folic Acid 1 MG, Thiamine HCl 100 MG in Dextrose 5 %-0.45 %... IV SCH (18:15)
[2021-06-30 21:49] LABS: SARS-CoV-2 PCR by NAA Not Detected (NotDetected)
[2021-07-01] MEDS: Oxacillin 2 GM in Sodium Chloride 0.9% 100 ML IVPB SCH ×6 (01:24→20:27)
[2021-07-01] MEDS: Vancomycin HCl 25 MG/ML Oral PO SCH ×4 (02:31→19:52)
[2021-07-01 04:38] LABS: ALT (SGPT) 51 U/L (8-55); AST (SGOT) 117 U/L (5-34); Albumin 2.5 g/dL (3.4-4.8); Alkaline Phosphatase 71 U/L (40-110); Anion Gap 15 mmol/L (10-20); BUN (Urea Nitrogen) 116 mg/dL (8.4-25.7); Bilirubin, Total 22.8 mg/dL (0.2-1.2); Calc. Creatinine Clearance 31 mL/min (70-130); Calcium 6.9 mg/dL (7.8-10.44); Carbon Dioxide 20 mmol/L (23-31); Chloride 106 mmol/L (98-107); Globulin 2.6 g/dL (2.4-3.5); Glucose 116 mg/dL (80-115); Protein, Total 5.1 g/dL (5.8-8.1); Sodium 137 mmol/L (136-145)
[2021-07-01 04:41] LABS: Band 2 % (5-11); Hemoglobin 10.4 g/dL (14.0-18.0); Hypochromia SLIGHT = 6-15 cells (100X) (0-5/hpf); Lymphocytes 29 % (21-51); MDiff Complete? YES; Macrocytosis SLIGHT = 6-15 cells (100X) (0-5/hpf); Mean Corpuscular HGB CONC 32.4 g/dL (32.0-36.0); Mean Corpuscular Hemoglobin 34.2 pg (27.0-31.0); Mean Platelet Volume 13.9 fL (7.4-10.4); Monocytes 7 % (0-10); Neutrophil 62 % (42-75); Nucleated RBC 2 % (0); Platelet Count 36 thou/uL (130-400); Platelet Morphology Comment Appears Decreased; RBC Distribution Width 16.1 % (11.5-14.5); Red Blood Cell (RBC) Count 3.04 mill/uL (4.70-6.10); White Blood Cell (WBC) Count 17.5 thou/uL (4.8-10.8)
[2021-07-01] MEDS: Octreotide Acetate 100 MCG/ML VIAL SC SCH ×3 (06:04→22:38)
[2021-07-01] MEDS: Dextrose 5% in Water 1,000 ML IV SCH (06:31)
[2021-07-01 08:03] LABS: Actual Bicarbonate (HCO3a) 19.2 mEq/L (22-28); CO2 Tension 32.6 mmHg (35.0-45.0); Calcium, Ionized (arterial) 0.97 mmol/L (1.12-1.30); Hemoglobin (Hb) 10.7 g/dL (14.0-18.0); O2 Tension (PaO2), arterial 84.9 mmHg (> 80.0); pH, Arterial 7.39 (7.35-7.45)
[2021-07-01 08:04] LABS: Puncture Site RRA
[2021-07-01] MEDS: Digoxin 0.125 MG TAB PO SCH (08:46)
[2021-07-01] MEDS: Midodrine HCl 5 MG TAB PO SCH ×3 (08:47→20:27)
[2021-07-01] MEDS: Pantoprazole 40 MG VIAL IVP SCH (08:50)
[2021-07-01] MEDS ORDERED: Heparin 10,000 UNITS/ 10 ML VIAL ONE (08:59)
[2021-07-01] MEDS: Multivitamins, Adult 10 ML, Folic Acid 1 MG, Thiamine HCl 100 MG in Dextrose 5 %-0.45 %... IV SCH (16:08)
[2021-07-02] MEDS: Oxacillin 2 GM in Sodium Chloride 0.9% 100 ML IVPB SCH ×6 (01:20→20:31)
[2021-07-02] MEDS: Vancomycin HCl 25 MG/ML Oral PO SCH ×4 (01:40→17:48)
[2021-07-02 04:55] LABS: Band 16 % (5-11); Hemoglobin 11.3 g/dL (14.0-18.0); Lymphocytes 12 % (21-51); MDiff Complete? YES; Macrocytosis SLIGHT = 6-15 cells (100X) (0-5/hpf); Mean Corpuscular HGB CONC 33.1 g/dL (32.0-36.0); Mean Corpuscular Hemoglobin 35.1 pg (27.0-31.0); Neutrophil 72 % (42-75); Platelet Count 42 thou/uL (130-400); Platelet Morphology Comment Appears Decreased; RBC Distribution Width 17.1 % (11.5-14.5); Red Blood Cell (RBC) Count 3.23 mill/uL (4.70-6.10); Target Cells SLIGHT = 2-5 cells (100X) (0-1/hpf); White Blood Cell (WBC) Count 26.8 thou/uL (4.8-10.8)
[2021-07-02 04:56] LABS: ALT (SGPT) 147 U/L (8-55); AST (SGOT) 596 U/L (5-34); Albumin 2.3 g/dL (3.4-4.8); Alkaline Phosphatase 91 U/L (40-110); Anion Gap 20 mmol/L (10-20); BUN (Urea Nitrogen) 97 mg/dL (8.4-25.7); Bilirubin, Total 24.1 mg/dL (0.2-1.2); Calc. Creatinine Clearance 28 mL/min (70-130); Calcium 6.5 mg/dL (7.8-10.44); Carbon Dioxide 19 mmol/L (23-31); Chloride 100 mmol/L (98-107); Globulin 3.1 g/dL (2.4-3.5); Glucose 115 mg/dL (80-115); Potassium 4.6 mmol/L (3.5-5.1); Protein, Total 5.4 g/dL (5.8-8.1); Sodium 134 mmol/L (136-145)
[2021-07-02] MEDS: Octreotide Acetate 100 MCG/ML VIAL SC SCH ×3 (07:10→22:05)
[2021-07-02] MEDS: Pantoprazole 40 MG VIAL IVP SCH (09:13)
[2021-07-02] MEDS: Midodrine HCl 5 MG TAB PO SCH ×3 (09:13→20:30)
[2021-07-02] MEDS: Digoxin 0.125 MG TAB PO SCH (09:13)
[2021-07-02] MEDS ORDERED: Calcium Carbonate 600 MG + Vit D TAB PER TUBE SCH (10:15)
[2021-07-02] MEDS: Albumin 25% 25 GM/100 ML BOT IVPB SCH ×2 (11:13→13:54)
[2021-07-02] MEDS: metroNIDAZOLE 250 MG in Admixture Fee 2 EACH IVPB SCH (17:54)
[2021-07-02] MEDS: Calcium Carbonate 600 MG + Vit D TAB PER TUBE SCH (20:30)
[2021-07-03] MEDS: Vancomycin HCl 25 MG/ML Oral PO SCH ×4 (00:10→23:59)
[2021-07-03] MEDS: Oxacillin 2 GM in Sodium Chloride 0.9% 100 ML IVPB SCH ×6 (00:10→21:00)
[2021-07-03] MEDS: Lorazepam 2 MG/ML VIAL SLOW IVP PRN ×3 (02:31→16:43)
[2021-07-03] MEDS: metroNIDAZOLE 250 MG in Admixture Fee 2 EACH IVPB SCH ×3 (02:38→16:13)
[2021-07-03] MEDS: Octreotide Acetate 100 MCG/ML VIAL SC SCH ×2 (05:12→13:42)
[2021-07-03 05:15] VITALS: BMI 36.3
[2021-07-03 05:39] LABS: Digoxin 1.17 ng/mL (0.8-2.0)
[2021-07-03 05:44] LABS: ALT (SGPT) 341 U/L (8-55); AST (SGOT) 1437 U/L (5-34); Albumin 2.4 g/dL (3.4-4.8); Alkaline Phosphatase 100 U/L (40-110); Anion Gap 18 mmol/L (10-20); BUN (Urea Nitrogen) 71 mg/dL (8.4-25.7); Calc. Creatinine Clearance 31 mL/min (70-130); Calcium 6.6 mg/dL (7.8-10.44); Carbon Dioxide 23 mmol/L (23-31); Chloride 98 mmol/L (98-107); Globulin 3.1 g/dL (2.4-3.5); Glucose 106 mg/dL (80-115); Potassium 4.7 mmol/L (3.5-5.1); Protein, Total 5.5 g/dL (5.8-8.1); Sodium 134 mmol/L (136-145)
[2021-07-03 05:53] LABS: Bilirubin, Total 25.5 mg/dL (0.2-1.2)
[2021-07-03] MEDS ORDERED: Calcium Chloride 13.6 MEQ in Sodium Chloride 0.9% 100 ML IVPB SCH (06:00)
[2021-07-03] MEDS: Albumin 25% 25 GM/100 ML BOT IVPB SCH ×3 (06:46→16:13)
[2021-07-03 07:23] LABS: Actual Bicarbonate (HCO3v) 22 mEq/L (22-28); Base Excess -1.4 mEq/L (-2.0 to +3.0); Calcium, Ionized (venous) 0.89 mmol/L (1.16-1.32); Chloride (VBG) 96 mmol/L (98-106); Hemoglobin (Hb) 10.5 g/dL (12.6-17.4); Potassium (VBG) 4.45 mmol/L (3.70-5.30); Sodium 130.2 mmol/L (133-146); pH (venous) 7.44 (7.32-7.43)
[2021-07-03 08:53] LABS: Band 8 % (5-11); Hemoglobin 10.5 g/dL (14.0-18.0); Lymphocytes 19 % (21-51); MDiff Complete? YES; Macrocytosis MODERATE=16-30 cells (100X) (0-5/hpf); Mean Corpuscular HGB CONC 32.6 g/dL (32.0-36.0); Mean Platelet Volume 12.9 fL (7.4-10.4); Monocytes 6 % (0-10); Neutrophil 67 % (42-75); Platelet Count 43 thou/uL (130-400); Platelet Morphology Comment Appears Decreased; Polychromasia MODERATE = 3-4 cells (100X) (0-2/hpf); RBC Distribution Width 18.1 % (11.5-14.5); Red Blood Cell (RBC) Count 3.01 mill/uL (4.70-6.10); Schistocytes SLIGHT = 2-5 cells (100X) (0-1/hpf); Target Cells SLIGHT = 2-5 cells (100X) (0-1/hpf); White Blood Cell (WBC) Count 19.9 thou/uL (4.8-10.8)
[2021-07-03] MEDS: Midodrine HCl 5 MG TAB PO SCH ×2 (09:00→13:42)
[2021-07-03] MEDS: Pantoprazole 40 MG VIAL IVP SCH (09:00)
[2021-07-03] MEDS: Digoxin 0.125 MG TAB PO SCH (09:00)
[2021-07-03] MEDS: Calcium Carbonate 600 MG + Vit D TAB PER TUBE SCH (09:00)
[2021-07-03] MEDS ORDERED: Lorazepam 2 MG/ML VIAL SLOW IVP PRN (11:45)
[2021-07-03] MEDS: Morphine 4 MG/ML VIAL SLOW IVP SCH ×3 (13:42→17:41)
[2021-07-04] MEDS: Oxacillin 2 GM in Sodium Chloride 0.9% 100 ML IVPB SCH ×6 (01:00→20:45)
[2021-07-04] MEDS: Morphine 4 MG/ML VIAL SLOW IVP SCH ×9 (01:44→20:52)
[2021-07-04] MEDS: metroNIDAZOLE 250 MG in Admixture Fee 2 EACH IVPB SCH ×2 (02:00→18:27)
[2021-07-04] MEDS ORDERED: Scopolamine 1.5 mg/72 hour Patch TD SCH (15:15)
[2021-07-04] MEDS: Vancomycin HCl 25 MG/ML Oral PO SCH ×3 (15:25→20:46)
[2021-07-04] MEDS: Pantoprazole 40 MG VIAL IVP SCH (15:39)
[2021-07-04 21:06] VITALS: BP 68/38; TEMP 97.2
[2021-07-05] MEDS: Morphine 4 MG/ML VIAL SLOW IVP SCH (00:12)
[2021-07-05] MEDS: Oxacillin 2 GM in Sodium Chloride 0.9% 100 ML IVPB SCH (01:00)
[2021-07-05] MEDS: metroNIDAZOLE 250 MG in Admixture Fee 2 EACH IVPB SCH (02:05)
== END 2021-07-05 05:27 | disposition expired | DRG 870 ==
LOC: ERS 15:02 → 2NO 18:05 → IMCU/EMU 06-23 19:10 → CCU 06-27 16:01 → SURG A 07-03 20:03
PROVIDERS: ADMIT Internal Medicine; ATTEND Internal Medicine
PROC: 0DH67UZ Insertion of Feeding Device into Stomach, Via Natural or Artificial Opening (ICD-10-PCS; 2021-06-23)
PROC: 8E0ZXY6 Isolation (ICD-10-PCS; 2021-06-23)
PROC: 06HY33Z Insertion of Infusion Device into Lower Vein, Percutaneous Approach (ICD-10-PCS; 2021-06-25)
PROC: 0DH67UZ Insertion of Feeding Device into Stomach, Via Natural or Artificial Opening (ICD-10-PCS; 2021-06-27)
PROC: 5A1955Z Respiratory Ventilation, Greater than 96 Consecutive Hours (ICD-10-PCS; principal; 2021-06-28)
PROC: 0BH18EZ Insertion of Endotracheal Airway into Trachea, Via Natural or Artificial Opening Endoscopic (ICD-10-PCS; 2021-06-28)
PROC: 06HY33Z Insertion of Infusion Device into Lower Vein, Percutaneous Approach (ICD-10-PCS; 2021-06-30)
PROC: 5A1D70Z Performance of Urinary Filtration, Intermittent, Less than 6 Hours Per Day (ICD-10-PCS; 2021-06-30)
DX: A41.01 Sepsis due to Methicillin susceptible Staphylococcus aureus (principal); G93.41 Metabolic encephalopathy; K76.7 Hepatorenal syndrome; K72.00 Acute and subacute hepatic failure without coma; J96.01 Acute respiratory failure with hypoxia; J96.02 Acute respiratory failure with hypercapnia; M62.82 Rhabdomyolysis; N17.9 Acute kidney failure, unspecified; E87.2 Acidosis; D68.4 Acquired coagulation factor deficiency; A04.72 Enterocolitis due to Clostridium difficile, not specified as recurrent; A02.0 Salmonella enteritis; I13.0 Hypertensive heart and chronic kidney disease with heart failure and stage 1 through stage 4 chronic kidney disease, or unspecified chronic kidney disease; E87.0 Hyperosmolality and hypernatremia; Z66 Do not resuscitate; Z51.5 Encounter for palliative care; Z20.822 Contact with and (suspected) exposure to COVID-19; A41.4 Sepsis due to anaerobes; R65.20 Severe sepsis without septic shock; J44.9 Chronic obstructive pulmonary disease, unspecified; M10.9 Gout, unspecified; I50.9 Heart failure, unspecified; B18.2 Chronic viral hepatitis C; F17.210 Nicotine dependence, cigarettes, uncomplicated; F12.10 Cannabis abuse, uncomplicated; K74.60 Unspecified cirrhosis of liver; D69.6 Thrombocytopenia, unspecified; K76.89 Other specified diseases of liver; N18.32 Chronic kidney disease, stage 3b; E66.9 Obesity, unspecified; E83.39 Other disorders of phosphorus metabolism; D53.9 Nutritional anemia, unspecified; E87.6 Hypokalemia; I48.0 Paroxysmal atrial fibrillation; R00.1 Bradycardia, unspecified; E83.51 Hypocalcemia; L53.8 Other specified erythematous conditions; Z91.041 Radiographic dye allergy status; Z78.1 Physical restraint status; I25.2 Old myocardial infarction; Z90.89 Acquired absence of other organs; Z98.890 Other specified postprocedural states; Z79.82 Long term (current) use of aspirin; Z79.899 Other long term (current) drug therapy; Z68.36 Body mass index [BMI] 36.0-36.9, adult
CPT/HCPCS: 36415; 36600; 70450; 71045; 74018; 74176; 76705; 78227; 80048; 80053; 80074; 80076; 80162; 80202; 80306; 80307; 80400; 81001; 81003; 81015; 82105; 82140; 82306; 82550; 82553; 82570; 82607; 82746; 82805; 83010; 83605; 83615; 83690; 83735; 83880; 84100; 84145; 84156; 84300; 84425; 84443; 84484; 84540; 85025; 85060; 85610; 85730; 86160; 86704; 86706; 86803; 87040; 87045; 87046; 87070; 87086; 87186; 87205; 87324; 87340; 87427; 87449; 87493; 90935; 93005; 93010; 93306; 94002; 94003; 94640; A9537; C9113; G0257; J0692; J1160; J1642; J1644; J1940; J1956; J2060; J2185; J2270; J2354; J2700; J2704; J3010; J3370; J3411; J3490; J7042; J7050; J7070; J7620; P9047; U0002; U0003; U0005